=== PATIENT | male | born 1940 | race Caucasian/White ===

== ENCOUNTER 2016-11-27 10:12 | Emergency (ER) | payer MEDICARE ==
[2016-11-27 11:48] LABS: HEMOGLOBIN 10.7 gm/dl (14.0-17.5); RED BLOOD COUNT 3.44 M/UL (4.20-5.50)
[2016-11-27 12:10] LABS: WHITE BLOOD COUNT 31.7 K/UL (4.5-11.0)
== END 2016-11-27 14:05 | disposition home or self-care (01) ==
LOC: ER1 10:12
PROVIDERS: Emergency Medicine
DX: I48.0 Paroxysmal atrial fibrillation (principal); Z88.0 Allergy status to penicillin; Z88.2 Allergy status to sulfonamides; Z95.5 Presence of coronary angioplasty implant and graft
CPT/HCPCS: 36415; 71010; 80053; 81001; 84439; 84443; 85025; 93005; 99285